=== PATIENT | female | born 1995 | race Caucasian/White ===

== ENCOUNTER 2017-12-12 12:44 | Inpatient (IN) | payer OTHER ==
[~2017-12-12] VITALS: Ht 165.1 cm; Wt 45.4 kg
--- NOTE | 2017-12-12 08:00 | NUR ---
CIWS DEFERRED DUE TO PT BEING ASLEEP. Addendum: 12/13/17 at 0411 by DIONICIO LYNN RN CHARTING ERROR.WRONG TIME.
--- NOTE | 2017-12-12 13:45 | NUR ---
Pre-Admission Note Received 22 y/o F being admitted for medically supervised ETOH- vodka withdrawal with meth and ecstasy use. Upon assessment, pt is sitting in chair with a slumped posture, has a flat affect, slurred speech, appears drowsy, anxious, agitated, easily irritable, flushed, appears intoxicated and has an odor of ETOH. Does not keep her eyes open for long time and and closes them while speaking. Pt is the primary source of info and is a poor historian. Pt denies PMH. Pt reports she was diagnosed with bipolar disorder, anxiety and depression; and is prescribed Lamictal 400 mg po daily and abilify 15 mg po daily however states is not compliant with her meds. Pt reports a hx of involuntary psych hospitalization - 5150 3 months ago; pt is reluctant to explaining further on the experience about the event. Pt reports she has been to multiple treatment facilities: [facility] and residential in 2016, [facility] in [place] in 2017, but pt states she cannot recall others. Hx of multiple blackout, cannot recall dates but can confirm last time was recently in the past few weeks. Pt reports using for the past 4 months and was at a detox facility which she cannot remember the name of prior. Longest period of sobriety is 5 months in 2017; pt cannot recall the exact dates. Initial VS are BP: 113/80, HR: 115, RR: 18, O2sat: 98% PCP: Dr Monroy in [facility], Psychiatrist: Dr. Wolfgang newsome. SUBSTANCE USE HX: 1. ETOH - Vodka 750 mg PO daily x 4 months. Last used today 12/12/17 at 1215 90 ml of whiskey. First used at age 15. 2. Meth - 1 g insufflation daily x 4months. Last used today 12/12/17, pt states, "I can't remember what time. It was in the morning." First used at age 22. 3. Ecstasy 1 pill daily PO x 4 months. Last used today 12/12/17: 1 pill sometime in am. First used at age 22.
[2017-12-12 15:19] LABS: *URINE HCG, QUAL NEGATIVE (NEGATIVE)
[2017-12-12 15:26] LABS: *AMPHETAMINE, URINE POSITIVE (NEGATIVE); *BARBITURATE, URINE NEGATIVE (NEGATIVE); *CANNABINOID, URINE NEGATIVE (NEGATIVE); *COCCAINE, URINE POSITIVE (NEGATIVE); *OPIATE, URINE NEGATIVE (NEGATIVE); *PHENCYCLIDINE SCREEN,URINE NEGATIVE (NEGATIVE)
[2017-12-12 16:00] VITALS: BP 116/74
[2017-12-12] MEDS ORDERED: ONDANSETRON ODT 4 MG TAB.RAPDIS SL PRN (17:00)
[2017-12-12] MEDS ORDERED: DIAZEPAM 5 MG TABLET PO PRN (17:00)
[2017-12-12] MEDS ORDERED: LORAZEPAM 2 MG/1 ML VIAL IM PRN (17:00)
[2017-12-12] MEDS ORDERED: DIAZEPAM 10 MG TABLET PO PRN ×2 (17:00)
[2017-12-12] MEDS ORDERED: THIAMINE HCL 200 MG/2 ML VIAL IM ONE (17:00)
[2017-12-12] MEDS ORDERED: MAGNESIUM HYDROXIDE 30 ML LIQUID UDC PO PRN (17:00)
[2017-12-12] MEDS ORDERED: MAG HYDROX/AL HYDROX/SIMETH 30 ML LIQUID UDC PO PRN (17:00)
[2017-12-12] MEDS ORDERED: LOPERAMIDE HCL 2 MG CAPSULE PO PRN ×2 (17:00)
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
[2017-12-12 19:11] LABS: BASOPHILS # (AUTO) 0.1 K/uL (0.0-8.0); BASOPHILS % (AUTO) 1.2 % (0.0-2.0); EOSINOPHILS % (AUTO) 0.7 % (0.0-7.0); HEMOGLOBIN 14.9 g/dL (10.9-14.3); LYMPHOCYTES # (AUTO) 1.4 K/uL (20.0-40.0); LYMPHOCYTES % (AUTO) 25.5 % (20.5-51.5); MEAN CORPUSCULAR HEMOGLOBIN 29.8 uug (24.7-32.8); MEAN CORPUSCULAR HGB CONC 35 g/dL (32.3-35.6); MEAN CORPUSCULAR VOLUME 85.8 fL (75.5-95.3); MONOCYTES # (AUTO) 0.7 K/uL (2.0-10.0); MONOCYTES % (AUTO) 13.1 % (0.0-11.0); NEUTROPHILS # (AUTO) 3.3 K/uL (1.8-8.9); NEUTROPHILS % (AUTO) 59.5 % (38.5-71.5); PLATELET COUNT (AUTO) 321 K/uL (179-408); RED BLOOD CELL COUNT(AUTO) 5.01 MIL/uL (3.63-4.92); WHITE BLOOD COUNT (AUTO) 5.5 K/uL (3.8-11.8)
--- NOTE | 2017-12-12 19:28 | NUR ---
End Of Shift Pt is laying in bed eating a sandwich and snacks with the tv on. Pt is partially still intoxicated, pupils are large, appears flush and disheveled. 4 day Valium taper ordered to be started tomorrow 12/13/17. PRNs are avail for s/s. Safety measures in place. Endorsement given to maintenance supervisor 2nd shift nurse.
--- NOTE | 2017-12-12 19:31 | NUR ---
SUBSTANCE USE HX UPDATE: Pt verbalized she has been using benzo - xanax 2-3mg every other 2 nights for sleep x 4 months.
--- NOTE | 2017-12-12 19:35 | NUR ---
START OF SHIFT Pt is a 22 y/o female admitted for ETOH withdrawal.Per report, Pt has also been taking Xanax 2-3 mg Po every other day.UDS is positive for Benzos. Pt received in room lying in bed with eyes closed,responsive upon approach, breathing is even and non labored.Pt c/o feeling anxious with generalized body ache,falling asleep during interview.Pt is to start on a 4 day Valium taper tomorrow.All safety measures are in place,call light is within reach,will continue to monitor for safety.
[2017-12-12 19:39] LABS: THYROID STIMULATING HORMONE 0.513 mIU/mL (0.358-3.740)
[2017-12-12 20:00] VITALS: BP 99/65
--- NOTE | 2017-12-12 20:00 | NUR ---
CIWA DEFERRED DUE TO PT BEING ASLEEP.
[2017-12-12 20:18] LABS: CREATININE 0.8 mg/dL (0.6-1.3)
[2017-12-12 20:20] LABS: POTASSIUM 1.9 mmol/L (3.5-5.1)
[2017-12-12 20:22] LABS: MAGNESIUM 1.7 mg/dL (1.8-2.4); TOTAL PROTEIN, SERUM 8.1 g/dL (6.4-8.2)
[2017-12-12] MEDS ORDERED: POTASSIUM CHLORIDE 20 MEQ TAB.PRT.SR PO ONE (20:30)
[2017-12-12] MEDS ORDERED: MAGNESIUM OXIDE 400 MG TABLET PO ONE (20:30)
--- NOTE | 2017-12-12 20:30 | NUR ---
Critical K level Lab called and reported critical lab result, K=1.9. Patient denied chest pain. Mag=1.7. Patient was given KDur 40 MEQs PO and Mag Ox 400 mg PO. Patient only c/o generalized pain=7/10 and anxiety. BP=97/64, btknn=167, O2 sat=97% on RA. Dr. Acharya made aware and he ordered Stat EKG.
[2017-12-12] MEDS: diphenhydrAMINE 50 MG CAPSULE PO PRN (20:40)
[2017-12-12] MEDS: IBUPROFEN 600 MG TABLET PO PRN (20:40)
--- NOTE | 2017-12-12 20:40 | NUR ---
PRN MEDS AND POT/MG REPLACEMENT POTASSIUM AND MAGNESIUM REPLACED PER ORDERS.PT C/O FEELING ANXIOUS WITH GENERALIZED BODY PAIN.CIWA=12.PRN VALIUM 10 MG PO GIVEN.ALSO MOTRIN 600 MG PO GIVEN FOR BODYACHE,BENADRYL 50 MG PO GIVEN FOR C/O INSOMNIA.WILL MONITOR.
--- NOTE | 2017-12-12 20:42 | NUR ---
EKG Result EKG Result relayed to Dr. Acharya.
--- NOTE | 2017-12-12 21:10 | NUR ---
Transfer to ER MD ordered for patient to be transferred to ER. Patient was transferred to ER via wheelchair accompanied by charge nurse and COMPUTER GAME DESIGNER supervisor filtration. Report given to Jackelin of ER.
[2017-12-12] MEDS ORDERED: MAGNESIUM OXIDE 400 MG TABLET ONE (22:03)
--- NOTE | 2017-12-13 | NUR ---
CIWA DEFERRED.PT IS IN THE ER.
--- NOTE | 2017-12-13 01:05 | NUR ---
Back from ER Patient came back with stable vital signs: BP-109/65, pulse-96, RR-16, O2 sat on RA-97%, T=98.7, For continuous close monitoring.
[2017-12-13] MEDS ORDERED: POTASSIUM CHLORIDE 20 MEQ TAB.PRT.SR PO ONE ×3 (01:15→15:15)
--- NOTE | 2017-12-13 01:15 | NUR ---
KDur [address] Acharya ordered additional KDur 40 MEQs PO once and labs for this morning: BMP, Mag.
[2017-12-13 01:30] VITALS: BP 101/66
[2017-12-13 04:00] VITALS: BP 101/66
--- NOTE | 2017-12-13 04:00 | NUR ---
CIWA DEFERRED PT IS RESTING IN BED WITH EYES CLOSED,BREATHING IS EVEN AND NON LABORED,NO C/O PAIN OR DISTRESS NOTED,V/S ARE STABLE.COWS DEFERRED D/T PT BEING ASLEEP.WILL CONTINUE TO MONITOR.
--- NOTE | 2017-12-13 06:42 | NUR ---
END OF SHIFT END OF SHIFT Pt is a 22 y/o female admitted for ETOH withdrawal.Per report, Pt has also been taking Xanax 2-3 mg Po every other day.UDS is positive for Benzos. Pt had a critical low K 1.9, was replaced with KDur 40 meq x 2 and low Mag was replaced per order.Pt also had an abnormal EKG and was sent to ER for evaluation.PRN valium,motrin and Benadryl were given and were effective.Repeat labs drawn this morning.Pt is to start on a 4 day Valium taper today. She slept 5 hours,fluid intake was 1920 ml,voided x 1 .All safety measures are in place,call light is within reach,will continue to monitor for safety.
[2017-12-13 06:48] LABS: CREATININE 0.8 mg/dL (0.6-1.3); MAGNESIUM 2.1 mg/dL (1.8-2.4)
[2017-12-13 06:54] LABS: POTASSIUM 2.7 mmol/L (3.5-5.1)
--- NOTE | 2017-12-13 06:58 | NUR ---
Critical K Level Potassium level this morning=2.7. Dr. Acharya informed and he ordered KDur 40 MEQs PO once. Will continue to monitor.
--- NOTE | 2017-12-13 07:20 | NUR ---
Start of Shift Last COWS 12 at 2100. Pt on 4 day Subutex taper. Pt guarded, flat affect, and depressed mood. Pt withdrawal symptoms include body aches, chills, fatigue, anhedonia, decreased appetite, dysphoria, warm skin to touch, and nausea. AM K+ was 2.7 meq. KDur 40 meq ordered. Encouraged Pt to attend group therapy sessions to identify positive coping skills to maintain sobriety. Bed in lowest position. Side rails up x2. Call light functioning and within reach. All needs attended and met. Will continue to monitor for withdrawal symptoms.
[2017-12-13 08:00] VITALS: BP 106/77
--- NOTE | 2017-12-13 08:00 | NUR ---
WA 17- Pt withdrawal symptoms include moderate body aches, headache #6/10, chills, sweats, moist skin, fatigue, anhedonia, decreased appetite, light sensitivity, unable to perform additions, not oriented to time, and dysphoria. Addendum: 12/13/17 at 0845 by Doris Barr RN Pt disheveled and odorous.
[2017-12-13] MEDS: THIAMINE HCL 100 MG TABLET PO SCH (08:10)
[2017-12-13] MEDS: FOLIC ACID 1 MG TABLET PO SCH (08:10)
[2017-12-13] MEDS: MULTIVITAMINS,THERAPEUTIC TABLET PO SCH (08:10)
[2017-12-13] MEDS: DIAZEPAM 10 MG TABLET PO SCH ×3 (08:10→22:35)
[2017-12-13] MEDS: IBUPROFEN 600 MG TABLET PO PRN ×2 (08:30→22:38)
--- NOTE | 2017-12-13 08:30 | NUR ---
PRN Ibuprofen 600 mg PO for headache #6/10 and back pain #6/10.
[2017-12-13] MEDS ORDERED: TUBERCULIN,PURIF.PROT.DERIV. 5 TU/0.1 ML TEST ID ONE (09:00)
[2017-12-13] MEDS ORDERED: 4 DAY TAPER VALIUM-SERENITY PROTOCOL PO PRN (09:00)
--- NOTE | 2017-12-13 09:30 | NUR ---
Reassess Ibuprofen- Pt reports headache now #3/10 and tolerable.
[2017-12-13 12:00] VITALS: BP 111/69
--- NOTE | 2017-12-13 12:00 | NUR ---
[facility] 15- Pt withdrawal symptoms include anxiety, mild headache #3-4/10, body aches, sweats, chills, chills, moist skin, fatigue, anhedonia, poor appetite, and light sensitivity. Pt has hypoactivity, sleepy and remains dishevels. She did not get up to perform basic ADL's, such as brush teeth and comb hair.
--- NOTE | 2017-12-13 12:05 | NUR ---
HR elevated at 125, MD notified. No interventions at this time. Continue to monitor and push fluids.
[2017-12-13 13:26] LABS: BASOPHILS % (AUTO) 0.7 % (0.0-2.0); EOSINOPHILS % (AUTO) 0.7 % (0.0-7.0); HEMATOCRIT 41.3 % (31.2-41.9); HEMOGLOBIN 14.4 g/dL (10.9-14.3); LYMPHOCYTES # (AUTO) 1.2 K/uL (20.0-40.0); LYMPHOCYTES % (AUTO) 16.8 % (20.5-51.5); MEAN CORPUSCULAR HEMOGLOBIN 30.7 uug (24.7-32.8); MEAN CORPUSCULAR HGB CONC 35 g/dL (32.3-35.6); MEAN CORPUSCULAR VOLUME 87.8 fL (75.5-95.3); MONOCYTES # (AUTO) 0.6 K/uL (2.0-10.0); MONOCYTES % (AUTO) 8.9 % (0.0-11.0); NEUTROPHILS # (AUTO) 5.1 K/uL (1.8-8.9); NEUTROPHILS % (AUTO) 72.9 % (38.5-71.5); PLATELET COUNT (AUTO) 265 K/uL (179-408); RED BLOOD CELL COUNT(AUTO) 4.71 MIL/uL (3.63-4.92)
[2017-12-13 13:34] LABS: MAGNESIUM 2.2 mg/dL (1.8-2.4); POTASSIUM 2.9 mmol/L (3.5-5.1); TOTAL PROTEIN, SERUM 7.7 g/dL (6.4-8.2)
[2017-12-13 16:08] VITALS: BP 98/72
--- NOTE | 2017-12-13 16:12 | NUR ---
[facility] 15- Pt withdrawal symptoms include body aches, sweats, chills, moist skin, fatigue, mild anxiety, difficulty concentrating and fine tremors. Pt affect is flat and anhedonia. Pt is hypoactivity, sleepy and remains dishevels. Staff continue to encourage her to drink fluids.
--- NOTE | 2017-12-13 18:44 | NUR ---
End of Shift Last CIWA 15 at 1600. Pt started on 4 day Subutex taper. Pt affect is guarded, flat , anhedonia, dysphoria, and depressed mood. Pt withdrawal symptoms include fine tremors, body aches, head ache, chills, fatigue, poor appetite, sweats, moist skin, and nausea. Morning K+ was 2.7 meq. KDur 40 meq given per order. Repeat afternoon K+ level 2.9. Administered KDur 40 meq. PRN give; Ibuprofen. Room is cluttered with wrappers and empty water bottles. Food spilled in her bed. Encouraged Pt to attend group therapy sessions to identify positive coping skills to maintain sobriety. Pt was not well enough to participate in group therapy today. PO Fluids 2000 ml, Voids x2, BMx1. Fall and Seizure Precautions. Bed in lowest position. Side rails up x2. Call light functioning and within reach. All needs attended and met. Will continue to monitor for withdrawal symptoms. Endorsed to PM shift.
--- NOTE | 2017-12-13 19:30 | NUR ---
START OF SHIFT Pt is a 22 y/o female admitted for ETOH withdrawal.Per report, KDur 40 meq was given x 2 for low K level,prn motrin was giVen for headache and was effective.Pt is on Valium taper .Last CIWA=15. She is A/A/O X 4.Received in bed, lethargic disheveled, c/o anxiety and generalized aches and pain. All safety measures are in place,call light is within reach,will continue to medicate per orders and monitor for safety.
[2017-12-13 20:00] VITALS: BP 95/69
--- NOTE | 2017-12-13 20:00 | NUR ---
CIWA DEFERRED PT IS RESTING IN BED WITH EYES CLOSED,BREATHING IS EVEN AND NON LABORED,NO C/O PAIN OR DISTRESS NOTED,COWS DEFERRED D/T PT BEING ASLEEP.WILL CONTINUE TO MONITOR.
--- NOTE | 2017-12-13 22:38 | NUR ---
SHAE MOTRIN 600 MG PO GIVEN FOR C/O GENERALIZED BODY ACHE.WILL MONITOR. Addendum: 12/14/17 at 0220 by DIONICIO LYNN RN PAIN LEVEL IS 6/10.
--- NOTE | 2017-12-13 23:38 | NUR ---
PRN REASSESSMENT Pt is calm and and resting in bed with eyes closed,no s/s of distress noted,will continue to monitor.
--- NOTE | 2017-12-14 | NUR ---
CIWA CIWA deferred due to pt being asleep.Pt is calm and and resting in bed with eyes closed,no s/s of distress noted,v/s refused;will continue to monitor.
[2017-12-14 04:00] VITALS: BP 102/69
--- NOTE | 2017-12-14 04:00 | NUR ---
CIWA CIWA deferred due to pt being asleep.Pt is calm and and resting in bed with eyes closed,no s/s of distress noted,v/s stable;will continue to monitor.
--- NOTE | 2017-12-14 06:41 | NUR ---
END OF SHIFT Pt is a 22 y/o female admitted for ETOH withdrawal.Pt slept most of night. PRN Motrin was given x 1 and was effective.Pt slept 10 hours,still resting in bed with eyes closed,breathing is even and non labored,no s/ of distress noted; fluid intake was 950 ml,voided x 2, had BM X 1. All safety measures are in place,call light is within reach,will continue to monitor for safety.
--- NOTE | 2017-12-14 07:15 | NUR ---
Start Of Shift Patient is a 22yr old female who was admitted to [facility] on 12/12/17 for a medically supervised withdrawal from ETOH ( Vodka), Benzodiazepines ( Xanax) and also states she abuses Methamphetamines and Ecstasy, she has been placed on a 4 day Valium taper and this is day 2. PRN Motrin was given on mini shifter, she slept for 10 hours and last recorded CIWA was 15 @ 1600 12/13/17. Low K levels have been replaced orally, last level was 2.9, labs to be drawn this AM Currently she is in bed asleep, breathing even and unlabored , side rails up x2, continue to follow MD plan of care and offer support and encouragement.
[2017-12-14 08:00] VITALS: BP 110/83
--- NOTE | 2017-12-14 08:00 | NUR ---
[facility] 12 Patient's withdrawal symptoms present as diaphoresis, restlessness, increased anxiety and decreased appetite Scheduled 5mg PO Valium given, no PRN medications required or requested though offered
[2017-12-14 08:04] LABS: CREATININE 0.7 mg/dL (0.6-1.3)
[2017-12-14 08:08] LABS: POTASSIUM 2.8 mmol/L (3.5-5.1)
[2017-12-14] MEDS: THIAMINE HCL 100 MG TABLET PO SCH (08:45)
[2017-12-14] MEDS: FOLIC ACID 1 MG TABLET PO SCH (08:45)
[2017-12-14] MEDS: DIAZEPAM 5 MG TABLET PO SCH ×4 (08:45→20:35)
[2017-12-14] MEDS: MULTIVITAMINS,THERAPEUTIC TABLET PO SCH (08:45)
[2017-12-14] MEDS ORDERED: POTASSIUM CHLORIDE 20 MEQ TAB.PRT.SR PO ONE ×2 (09:00→21:15)
[2017-12-14 12:00] VITALS: BP 119/77
--- NOTE | 2017-12-14 12:00 | NUR ---
[facility] 12 Patient's withdrawal symptoms present as diaphoresis, restlessness, increased anxiety, leg aches, lethargy and decreased appetite Scheduled 5mg PO Valium given and PRN Motrin 600mg PO for leg aches
[2017-12-14] MEDS: IBUPROFEN 600 MG TABLET PO PRN (12:09)
--- NOTE | 2017-12-14 12:10 | NUR ---
PRN Motrin 600mg PO given for leg aches 08/30 will reassess
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
[2017-12-14 13:06] LABS: HEPATITIS B SURFACE AG Negative (Negative)
--- NOTE | 2017-12-14 13:10 | NUR ---
PRN Reassess Patient states her pain has decreased , leg pain now 2/10, Motrin 600mg PO effective
--- NOTE | 2017-12-14 14:08 | NUR ---
Therapist prompted client to attend all group therapy sessions.
[2017-12-14 16:00] VITALS: BP 102/89
--- NOTE | 2017-12-14 16:18 | NUR ---
[facility] 12 Patient's withdrawal symptoms present as diaphoresis,tachycardia ( 100-130 HR) restlessness, increased anxiety, leg aches, lethargy and decreased appetite
[2017-12-14] MEDS: HYDROXYZINE PAMOATE 25 MG CAPSULE PO PRN ×2 (16:43→23:11)
[2017-12-14 17:46] LABS: CREATININE 0.8 mg/dL (0.6-1.3)
[2017-12-14 18:21] LABS: POTASSIUM 2.6 mmol/L (3.5-5.1)
--- NOTE | 2017-12-14 18:59 | NUR ---
End Of Shift Sergio guerrero a 22 yr old female who was admitted to [facility] on 12/12/17 for a medically supervised withdrawal from ETOH ( Vodka ) and Benzodiazepines ( Xanax), she has been placed on a 4 day Valium taper and this is day 2. Per her Mothers report patient has been severely Bulimic for years and has severe mental health issues, patient has to be observed after meals for 1 hour. Her Potassium labs have been consistently low despite K- Dur replacements, latest result was 2.6 this afternoon . PRN Motrin was given today, she had a fluid intake of 2000ML, 4 voids and 1 BM, last CIWA was 12 @ 1600. She presents as depressed and has a sad flat affect, she has been isolative to her room, therapist had a 1:1 session with her today and she placed a call to her parents. Continue to follow MD plan of care and offer support and encouragement. Endorsed to tool coordinator.
--- NOTE | 2017-12-14 19:30 | NUR ---
Start of shift note Received report from day shift nurse. Patient is a 22 year old female admitted for ETOH withdrawal. Patient is on 2nd day of her 4 day Valium taper. Patient was given PRN Motrin. Last CIWA 12. Patient alert and oriented x 4. Patient presents with flat affect, depressed mood, eye avoidant, disheveled, uncombed hair, pressured speech and guarded . Safety measures in place. Call light in reach. Will continue to monitor.
[2017-12-14 20:00] VITALS: BP 106/79
--- NOTE | 2017-12-14 20:00 | NUR ---
CIWA assessment Patient anxious, restless, irritable, sweating, sensitive to light and sounds, body aches, restless legs and malaise. CIWA 13 Addendum: 12/15/17 at 0713 by MANOLO SHANKAR LVN Patient's heart rate 123, Dr. Acharya aware with no new order
[2017-12-14] MEDS: LAMOTRIGINE 100 MG TABLET PO SCH (20:34)
[2017-12-14] MEDS: QUETIAPINE FUMARATE 25 MG TABLET PO SCH (20:35)
[2017-12-14] MEDS: diphenhydrAMINE 50 MG CAPSULE PO PRN (20:35)
--- NOTE | 2017-12-14 20:35 | NUR ---
PRN Benadryl administration Patient requests for sleep aid. Will monitor for effectiveness
[2017-12-14] MEDS: CLONIDINE HCL 0.1 MG TABLET PO PRN (21:16)
--- NOTE | 2017-12-14 21:16 | NUR ---
PRN Clonidine/Potassium Chloride administration Patient anxious and restless. Will monitor for effectiveness . Potassium level 2.6.
--- NOTE | 2017-12-14 22:16 | NUR ---
PRN Clonidine and Benadryl re-assessment Patient lying in bed with eyes closed. Respiration even and unlabored. Will continue to monitor.
--- NOTE | 2017-12-14 23:11 | NUR ---
PRN Vistaril administration administration Patient presents with anxiety, restlessness and difficulty sleeping. Will monitor for effectiveness
[2017-12-15] VITALS: BP 100/72
--- NOTE | 2017-12-15 | NUR ---
CIWA deferred Patient lying in bed with eyes closed. Respiration even and unlabored. Will continue to monitor
--- NOTE | 2017-12-15 00:11 | NUR ---
PRN Vistaril re-assessment Patient lying in bed with eyes closed. Respiration even and unlabored. Will continue to monitor
[2017-12-15 04:00] VITALS: BP 102/68
--- NOTE | 2017-12-15 04:00 | NUR ---
CIWA deferred Patient lying in bed with eyes closed. Respiration even and unlabored. Will continue to monitor
--- NOTE | 2017-12-15 07:11 | NUR ---
End of shift note Patient slept 9 hours. Fluid intake 1,600 ml. Voided x 2. No BM . Monitored patient throughout shift. Patient presented with flat affect, depressed mood, eye avoidant, disheveled, uncombed hair, pressured speech and guarded, anxiety, restless, sweating , sensitive to light and sounds, body aches, restless legs and malaise. Scheduled medication and taper given as ordered. PRN Benadryl , Vistaril and Clonidine given. Potassium chloride given for Potassium level 2.6. Patient withdrawn and isolative. Safety measures in place. Call light within reach. Will continue to monitor. Last CIWA 13.
[2017-12-15 07:35] LABS: CREATININE 0.8 mg/dL (0.6-1.3); POTASSIUM 3.1 mmol/L (3.5-5.1)
[2017-12-15 08:00] VITALS: BP 89/48
--- NOTE | 2017-12-15 08:00 | NUR ---
Start Of Shift / CIWA 14 Received 21 y/o F admitted on 12/12/17 for medically supervised ETOH and xanax withdrawal with meth and ecstasy use. Pt is on the 3rd day of a valium taper and tolerating well. Pt is bulimic and has 1:1 sitter for 1 hr after meals. Pt has a disheveled presentation, flat affect, and has a depressive mood, pt states, I just want to go back to sleep after this. Pt presents elevated hr, anxiety, agitation, restlessness, sweating, sensitivity to light and sound, generalized body aches and joint pain 09/29, gross/fine tremors noted. Pt was given vistaril and clonidine prns, pt slept 9 hrs. Last CIWA 13 @1999. Educated pt with med regimen and tx plan. Side rails upx2, bed in low position, and call light is within reach. Will continue to monitor.
[2017-12-15] MEDS: THIAMINE HCL 100 MG TABLET PO SCH (09:41)
[2017-12-15] MEDS: MULTIVITAMINS,THERAPEUTIC TABLET PO SCH (09:41)
[2017-12-15] MEDS: IBUPROFEN 600 MG TABLET PO PRN ×2 (09:41→20:45)
[2017-12-15] MEDS: DIAZEPAM 5 MG TABLET PO SCH ×3 (09:41→20:45)
[2017-12-15] MEDS: FOLIC ACID 1 MG TABLET PO SCH (09:41)
--- NOTE | 2017-12-15 09:41 | NUR ---
PRN Ibuprofen 600 mg po prn given for c/o generalized body aches and joint pain 09/29; w/ facial grimacing, rubbing joint area. Will monitor and reassess.
--- NOTE | 2017-12-15 10:41 | NUR ---
Reassessment Pt is laying in bed with lights off, sleeping. Respirations even and unlabored. Will continue to monitor.
[2017-12-15 12:16] VITALS: BP 90/56
--- NOTE | 2017-12-15 12:30 | NUR ---
CIWA 16 Pt presents increased anxiety and agitation, elevated hr, restlessness, sweating, sensitivity to light and sound, generalized body aches and joint pain /, gross/fine tremors noted, has a disheveled appearance, easily irritable. Requests vistaril prn. Will continue to monitor.
[2017-12-15] MEDS ORDERED: POTASSIUM CHLORIDE 20 MEQ TAB.PRT.SR PO ONE (13:00)
[2017-12-15] MEDS: HYDROXYZINE PAMOATE 25 MG CAPSULE PO PRN ×2 (13:24→20:48)
--- NOTE | 2017-12-15 13:24 | NUR ---
PRN Vistaril 50 mg po prn given for increased anxiety 09/29; pt has an anxious mood and expression, fidgety. Will monitor and reassess.
--- NOTE | 2017-12-15 14:00 | NUR ---
Clinical Note: Spoke with patient's mother, Luis [phone] at length. She is very eager for patient to be committed and on a 5150. Discussed case with Dr Iglesias. He asked this production underwriter to advise parents to to take her to a facility that can 5150 her if they feel so strongly about this. Mother says she is speaking to an MD at [facility] who says he may be willing to admit her. Mother says she has been 5150ed many times and has been let go. 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 Pt. told her mother she wants to get clean but not get treated for her eating disorder.
--- NOTE | 2017-12-15 14:24 | NUR ---
Reassessment Pt verbalized med was effective in decreasing her anxiety. Pt is currently laying in bed with eyes closed. Respirations even and unlabored. Will monitor and reassess.
--- NOTE | 2017-12-15 15:28 | NUR ---
Therapist prompted client to attend group therapy.
[2017-12-15 16:00] VITALS: BP 108/77
--- NOTE | 2017-12-15 16:30 | NUR ---
CIWA 17 Pt presents increased anxiety and agitation; pt wanted to leave AMA due to not wanted to have a sitter by bedside. Pt has an elevated hr, restlessness, sweating, sensitivity to light and sound, generalized body aches and joint pain 7/10, gross/fine tremors noted. Will continue to monitor.
--- NOTE | 2017-12-15 16:35 | NUR ---
Clinical Note: Pt. is alert and oriented x4. She was very reluctant to engage with this clinician who wanted to let her know that her mother was concerned about her and wanted her to receive treatment for her eating disorder. Pt. was controlled and controlling and said firmly " I do not want treatment for my eating disorder". Pt. showed no evidence of psychosis and her mood was calm. Her affect was flat. There is no evidence of the grave disability criteria her mother kept repeating. Pt. made a call to a "friend" who agreed to pick her up whenever she wants this. This was witnessed by Rose RIVERA.
--- NOTE | 2017-12-15 17:45 | NUR ---
Nursing note Pt verbalized she wants to leave AMA, pt was upset and did not want to comply with having a 1:1 sitter. "There is no way she is coming in here. I am not letting you do that. You can't make me stop no matter what," stated the pt. Encouraged pt to not vomit the consumed food or beverages and encouraged pt to stay and finish detox. Multiple staff members including therapists and administrators have spoke pt and encouraged her to stay. Educated pt on effects and risks of self-induced vomiting. After eating dinner, pt self-induced vomited in front of nurse and sitter. Pt is still adamant about leaving AMA.
--- NOTE | 2017-12-15 19:27 | NUR ---
End Of Shift Pt has been isolative in room throughout shift. Pt verbalized she does not want to have a 1:1 sitter and is wanting to leave AMA. Multiple staff members intervened and is still currently trying to talk to her however pt is still adamant about leaving. Pt also had self-induced vomited in front of 1:1 sitter; encouraged pt not to vomit and educated pt about risks and consequences. Pt stated, "Nothing is going to stop me from this so stop trying." Last . Pt elevated HR. Vistaril 50 mg po prn given. Pt ate 100% meals and many snacks however continued to vomit, self- induced. Sitter by bedside, safety measures in place. Endorsement given. Addendum: 12/15/17 at 1932 by GRETCHEN VASQUES RN K-dur given for K+ 3.1 during shift. Ibuprofen 600 mg po prn given and effective.
--- NOTE | 2017-12-15 19:30 | NUR ---
Start of shift note Received report from day shift nurse. Patient is a 22 year old female admitted for ETOH withdrawal. Patient is on 3rd day of her Valium taper. Patient was put on 1:1 for self -induced vomiting. Patient is AMA risk. Patient was given PRN Motrin, Vistaril and Potassium Chloride for Potassium level 3.1. Patient alert and oriented x 4. Patient present with flat affect, depressed mood, poor eye contact, sad, guarded, disheveled, dark [place] around eye and restricted. Safety measures in place. Call light within reach. Will continue to monitor.
[2017-12-15 20:00] VITALS: BP 99/74
--- NOTE | 2017-12-15 20:00 | NUR ---
CIWA assessment Patient anxious, restless, irritable, agitated, intermittent perspiration, worried, sensitive to light and headache. CIWA 12.
--- NOTE | 2017-12-15 20:30 | NUR ---
Episode of Induced Vomiting Patient had an episode of self-induced vomiting. Educate patient on risks and consequences.
[2017-12-15] MEDS: QUETIAPINE FUMARATE 25 MG TABLET PO SCH (20:44)
[2017-12-15] MEDS: LAMOTRIGINE 100 MG TABLET PO SCH (20:45)
--- NOTE | 2017-12-15 20:45 | NUR ---
PRN Vistaril and Motrin administration Patient presents anxiety and generalized body aches. Will monitor for effectiveness
--- NOTE | 2017-12-15 21:45 | NUR ---
PRN Vistaril and Motrin re-assessment Patient is less anxious and pain lessened
[2017-12-16] VITALS: BP 98/68
--- NOTE | 2017-12-16 | NUR ---
CIWA deferred Patient lying in bed with eyes closed. Respiration even and unlabored. Will continue to monitor
[2017-12-16 04:00] VITALS: BP 102/64
--- NOTE | 2017-12-16 04:00 | NUR ---
CIWA deferred Patient lying in bed with eyes closed. Respiration even and unlabored. Will continue to monitor
--- NOTE | 2017-12-16 07:17 | NUR ---
End of shift note Patient slept 7 hours. Fluid intake 1,555 ml. Voided x 1. No BM. Patient presented with flat affect, depressed mood, poor eye contact, sad, guarded, disheveled, dark [place] around eye, restricted, anxious, restless, intermittent perspiration and body aches. Scheduled medication and taper given as ordered. PRN Vistaril and Motrin given. Patient had one episode of self-induced vomiting during shift. Patient educated on risks and consequences. Safety measures in place. Call light within reach. Will continue to monitor. Last CIWA 12 .
[2017-12-16 07:29] LABS: POTASSIUM 2.2 mmol/L (3.5-5.1)
--- NOTE | 2017-12-16 07:48 | NUR ---
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 Pt is on the 4th day of a valium taper and tolerating well. Pt is bulimic and has 1:1 sitter, has a disheveled presentation, flat affect, and has a depressive and anxious mood, poor eye contact, highly irritable, elevated hr, anxiety, agitation, restlessness, sweating, sensitivity to light and sound, generalized body aches and joint pain /10, gross/fine tremors noted. Pt was given ibuprofen and clonidine prns, pt slept 7 hrs. Last CIWA 12 @1999. Educated pt with med regimen, tx plan, disease processes. Encouraged pt to not self-induce vomit; educated pt with risks. Side rails upx2, bed in low position, and call light is within reach. Will continue to monitor.
[2017-12-16 08:06] VITALS: BP 92/60
[2017-12-16] MEDS ORDERED: POTASSIUM CHLORIDE 20 MEQ TAB.PRT.SR PO ONE ×2 (08:30→19:30)
[2017-12-16] MEDS: FOLIC ACID 1 MG TABLET PO SCH (09:50)
[2017-12-16] MEDS: MULTIVITAMINS,THERAPEUTIC TABLET PO SCH (09:50)
[2017-12-16] MEDS: THIAMINE HCL 100 MG TABLET PO SCH (09:50)
[2017-12-16] MEDS: DIAZEPAM 5 MG TABLET PO SCH ×2 (09:50→20:48)
--- NOTE | 2017-12-16 09:51 | NUR ---
Nursing Note Pt had self-induced vomiting episode in room after eating breakfast, while sitter was in room with pt.
--- NOTE | 2017-12-16 09:55 | NUR ---
K+ 40 mEq ordered and given for K+ 2.2
--- NOTE | 2017-12-16 12:00 | NUR ---
CIWA 9 Pt continues to have a depressive and anxious mood, poor eye contact, highly irritable, elevated hr 111, anxiety, agitation, restlessness, sweating, sensitivity to light and sound, generalized body aches and joint pain 09/29, gross/fine tremors noted. Refuses prn meds. Pt verbalized that she still wants to leave [facility] and would like the process started. Multiple staff members including md, therapists, cn, administration and nurses talked to pt, explained risks and pt is still adamant on leaving.
[2017-12-16 12:24] VITALS: BP 88/65
--- NOTE | 2017-12-16 12:54 | NUR ---
Therapist prompted client to attend group therapy sessions, however client stated she was not interested to attend.
[2017-12-16] MEDS: HYDROXYZINE PAMOATE 25 MG CAPSULE PO PRN ×2 (15:18→23:48)
--- NOTE | 2017-12-16 15:35 | NUR ---
PRN Vistaril 50 mg po prn given for c/o anxiety; pt states she has increased anxiety 12/30. Will continue to monitor and reassess. Addendum: 12/16/17 at 1545 by GRETCHEN VASQUES RN Correct 1518
--- NOTE | 2017-12-16 16:05 | NUR ---
CIWA 14 Pt continues to have increased anxiety, anxious and depressive mood, poor eye contact, highly irritable, elevated hr, anxiety, agitation, restlessness, sweating, sensitivity to light and sound, generalized body aches, gross/fine tremors noted. Vistaril 50 mg po prn given. Safety measures in place. 1:1 sitter at bedside. Will continue to monitor.
[2017-12-16 16:30] VITALS: BP 113/69
--- NOTE | 2017-12-16 16:30 | NUR ---
Reassessment Pt verbalized that vistaril had decreased her anxiety. Sitter by bedside. safety measures in place.
[2017-12-16] MEDS: CLONIDINE HCL 0.1 MG TABLET PO PRN (17:27)
--- NOTE | 2017-12-16 17:27 | NUR ---
PRN Clonidine 0.1 mg po prn given for increased anxiety and agitation. Will monitor and reassess.
--- NOTE | 2017-12-16 18:30 | NUR ---
Reassessment Pt verbalized she feels a decrease in anxiety however is still elevated. Will continue to monitor closely. sitter at bedside. Safety measures in place.
[2017-12-16 18:59] LABS: CREATININE 0.8 mg/dL (0.6-1.3); MAGNESIUM 2.2 mg/dL (1.8-2.4)
[2017-12-16 19:11] LABS: POTASSIUM 2.8 mmol/L (3.5-5.1)
--- NOTE | 2017-12-16 19:30 | NUR ---
Start of Shift Patient Received. Per endorsement, patient continues on a modified Valium taper. Patient remains on 1:1 for safety. Patient is being closely monitored for excessive episodes of binge eating and purging. KDur supplements have been supplemented due to potassium levels out of range. Patient is also noted to be tachy due to excessive purging. She is noted to be a AMA risk with administration aware. Glucose levels monitored and noted to be 49. Upon rounds patient is noted in bed, awake, alert and verbally responsive. Breathing even and non labored. Patient is noted be disheveled, lethargic, flat and depressed affect. Informed patient of blood glucose levels with patient verbalizing understanding. Encouraged fluids and small snacks as tolerated. Patient agreed. Educated patient of risks of low blood glucose levels. Patient verbalized understanding. All needs attended to promptly. Will continue to monitor.
[2017-12-16 20:00] VITALS: BP 94/71
[2017-12-16] MEDS ORDERED: BLOOD SUGAR DIAGNOSTIC 1 EACH STRIP VI ONE (20:00)
--- NOTE | 2017-12-16 20:00 | NUR ---
End Of Shift Pt has verbalized she wanted to leave AMA but decided to stay for now. Pt was encouraged to not self-induce vomit and educated multiple times on risks and effects however pt proceeded to vomit with 1:1 sitter in room. Pt agreed not to self-induce vomit twice during shift aftering eat nuts and other snacks. Pt cried at the of shift with night nurse verbalizing that it is very difficult and she is trying. Presented with elevated HR, 146 @1600, 127 @1822, 109 @1900. Last CIWA 13 @1600. Last K+ 2.8. K+ 40 mEq @0951. Clonidine, and vistaril prns given. 1:1 sitter at bedside. Safety measures in place. Endorsement given to drug safety specialist nurse.
[2017-12-16] MEDS: QUETIAPINE FUMARATE 25 MG TABLET PO SCH (20:48)
[2017-12-16] MEDS: LAMOTRIGINE 100 MG TABLET PO SCH (20:48)
--- NOTE | 2017-12-16 21:00 | NUR ---
PRN Medication Administration patient is noted verbalizing increased heart burn and states "I dont know but my stomach feels like its burning. I have a feeling it is from the meds." PRN Maalox administered as per order. Will continue to monitor.
--- NOTE | 2017-12-16 21:25 | NUR ---
PRN Medication Administration patient is noted with an episode of emesis. per 1:1 sitter patient did not purge. patient states "It just came flying out. Im not trying to do this. I understand I need to try and I am." PRN Zofran administered. Will continue to monitor.
--- NOTE | 2017-12-16 22:25 | NUR ---
PRN Medication Reassessment patient is able to verbalize "I feel better." She is noted to request chips and a sprite and states "I'm going to try hold this in." Encouraged patient to drink fluids and eat snacks as tolerated. PRN maalox and PRN Zofran noted to be effective.
[2017-12-16] MEDS: diphenhydrAMINE 50 MG CAPSULE PO PRN (23:48)
[2017-12-17 00:01] VITALS: BP 105/76
--- NOTE | 2017-12-17 00:02 | NUR ---
PRN Medication Administration Patient is noted verbalizing increased anxiety and inability of falling asleep. PRN Vistaril and Benadryl administered. Blood Sugar check rendered and noted to be 145. Will continue to monitor.
--- NOTE | 2017-12-17 00:55 | NUR ---
PRN Medication Reassessment patient is noted in bed with eyes closed. Breathing even and non labored. No restlessness or facial grimacing noted. PRN Vistaril and Benadryl noted to be effective. Will continue to monitor.
[2017-12-17 04:00] VITALS: BP 98/51
--- NOTE | 2017-12-17 04:00 | NUR ---
CIWA Assessment Patient is noted in bed with eyes closed. Breathing even and non labored. No signs of restlessness or discomfort noted. Vitals rendered. CIWA unable to be completed as per order. Will continue to monitor.
[2017-12-17] MEDS: BLOOD SUGAR DIAGNOSTIC 1 EACH STRIP VI SCH ×2 (06:02)
--- NOTE | 2017-12-17 07:34 | NUR ---
End of Shift Patient is noted in bed with eyes closed but easily aroused to verbal stimuli. Breathing even and non labored. Patient continues on a modified Valium taper and remains on 1:1 for safety. Patient is being monitored closely for excessive episodes of binge eating and purging. Potassium noted to be2.8 and was supplemented with one time dose of KDUR 40meq. Patient received PRN Maalox but patient was noted to have an episode of emesis not related to purging as per 1:1. patient then received PRN Zofran with medication noted to be effective. She also received PRN Vistaril and Benadryl with medications noted to be effective. Patient was noted to sleep in intervals throughout the shift. She was noted with two episodes of emesis noted due to purging. Last noted CIWA 13. She was noted to sleep 5 hours. Last blood glucose check was noted 174. patient is noted to be high risk for AMA with adminisration aware. all needs attended to promptly. Will endorse to continue plan of care as ordered.
--- NOTE | 2017-12-17 07:35 | NUR ---
START OF SHIFT Endorse rcvd from ongoing nurse, client is in bed, lying on her R side, sounds asleep, easy to arouse, RR 16, even, non-labored, dark circles under eyes, and warm, dry skin. Sitter is at bedside promoting safety. PRN Maalox 30mL PO for upset stomach, Zofran 4mg SL for emesis, Vistaril 50mg PO for anxiety and Benadryl 50mg PO for sleep, client slept 5 hrs. Last CIWA 13 @ 2400. Client completed 4 day Ativan taper. Seizure precautions in place. Call light within reach.
[2017-12-17 08:24] VITALS: BP 99/69
[2017-12-17 09:02] LABS: BILIRUBIN,TOTAL 0.4 mg/dL (0.2-1.0); CREATININE 0.7 mg/dL (0.6-1.3); TOTAL PROTEIN, SERUM 7.5 g/dL (6.4-8.2)
[2017-12-17 09:08] LABS: POTASSIUM 2.3 mmol/L (3.5-5.1)
[2017-12-17] MEDS: THIAMINE HCL 100 MG TABLET PO SCH (09:11)
[2017-12-17] MEDS: FOLIC ACID 1 MG TABLET PO SCH (09:11)
[2017-12-17] MEDS: MULTIVITAMINS,THERAPEUTIC TABLET PO SCH (09:11)
--- NOTE | 2017-12-17 09:15 | NUR ---
CIWA 6 Client is in room, she is folding her clothes and stated, "I am leaving today, I know the risk already, doctor talk to me yesterday, but my parents are coming to get me at 1100." She presents with anxiety, irritability and nausea. Discuss risk of leaving against medical advice, client stated, "I know, I know, but I want to leave already." Client requires reinforcement. CN made aware.
--- NOTE | 2017-12-17 11:13 | NUR ---
AMA Note Client stated the she is ready to go. Client was educated about the risks and consequences of leaving AMA, client verbalized understanding but still requested to leave. Multiple staff members spoke with client without any success. VS are WNL, client denies any suicidal/homicidal ideations, Dr. Acharya notified. Client was given a list of community resources in case she is in need of help. All belongings and prescription from ER department returned to client. Per tech, client's parents are at the lobby and Mom embraced client in a hug. Client left at 1113.
== END 2017-12-17 11:13 | disposition left against medical advice (07) | DRG 894 ==
LOC: SRC 12:44
PROVIDERS: ADMIT Family Medicine Addiction Medicine; ATTEND Family Medicine Addiction Medicine
PROC: HZ2ZZZZ Detoxification Services for Substance Abuse Treatment (ICD-10-PCS; principal; 2017-12-12)
PROC: HZ31ZZZ Individual Counseling for Substance Abuse Treatment, Behavioral (ICD-10-PCS; 2017-12-14)
DX: F10.230 Alcohol dependence with withdrawal, uncomplicated (principal); F50.2 Bulimia nervosa; Y90.2 Blood alcohol level of 40-59 mg/100 ml; F17.210 Nicotine dependence, cigarettes, uncomplicated; Z59.0 Homelessness; E87.6 Hypokalemia; E83.42 Hypomagnesemia; F31.9 Bipolar disorder, unspecified; Z91.19 Patient's noncompliance with other medical treatment and regimen; F41.9 Anxiety disorder, unspecified; F15.229 Other stimulant dependence with intoxication, unspecified
CPT/HCPCS: 36415; 80307; 80324; 80345; 80353; 83690; 83735; 84443; 84703; 85025; 86592; 86705; 86803; 87340; 87806; 93005; G0480; J3411; Q0162; Q0163

== ENCOUNTER 2017-12-12 21:15 | Emergency (ER) | payer OTHER ==
[~2017-12-12] VITALS: Ht 165.1 cm; Wt 47.6 kg
--- NOTE | 2017-12-12 21:35 | NUR ---
Dr. Acharya at bedside for MSE.
[2017-12-12] MEDS ORDERED: POTASSIUM CHLORIDE 20 MEQ TAB.PRT.SR ONE (21:43)
[2017-12-12] MEDS ORDERED: POTASSIUM CHLORIDE 20 MEQ TAB.PRT.SR PO ONE ×2 (21:45)
[2017-12-12] MEDS ORDERED: MAGNESIUM OXIDE 400 MG TABLET PO ONE (21:45)
[2017-12-12] MEDS ORDERED: LORAZEPAM 0.5 MG TABLET PO ONE (21:45)
[2017-12-12] MEDS ORDERED: LORAZEPAM 1 MG TABLET ONE (21:48)
[2017-12-13 00:27] LABS: CREATININE 0.8 mg/dL (0.6-1.3)
[2017-12-13 00:33] LABS: POTASSIUM 2.2 mmol/L (3.5-5.1)
--- NOTE | 2017-12-13 00:40 | NUR ---
Dr. Jeronimo Acharya speaking with [facility]'s Dr. Pablo Acharya.
--- NOTE | 2017-12-13 00:58 | NUR ---
[facility] Written and verbal after care instructions given. Patient verbalizes understanding of instructions.
[2017-12-13 01:00] VITALS: BP 103/69
== END 2017-12-13 01:00 | disposition home or self-care (01) ==
LOC: ER 21:17
DX: E87.6 Hypokalemia (principal); E87.1 Hypo-osmolality and hyponatremia; E87.8 Other disorders of electrolyte and fluid balance, not elsewhere classified; E87.3 Alkalosis; E86.0 Dehydration; F15.10 Other stimulant abuse, uncomplicated; F10.239 Alcohol dependence with withdrawal, unspecified; F17.200 Nicotine dependence, unspecified, uncomplicated
CPT/HCPCS: 36415; 83735; A4663